=== PATIENT | female | born 1940 | race Caucasian/White ===

== ENCOUNTER → 2016-07-01 | Outpatient (CLI) | payer MEDICARE | LOC: GMAL 10:09 | PROVIDERS: ATTEND Family Medicine | DX: R53.82 Chronic fatigue, unspecified (principal) ==

== ENCOUNTER → 2017-01-02 | Outpatient (CLI) | payer MEDICARE | END | disposition home or self-care (01) | LOC: GMAL 10:56 | PROVIDERS: ATTEND Family Medicine | DX: D51.3 Other dietary vitamin B12 deficiency anemia (principal); E55.9 Vitamin D deficiency, unspecified ==

== ENCOUNTER → 2017-01-07 | Outpatient (CLI) | payer MEDICARE | END | disposition home or self-care (01) | LOC: GMAL 16:36 | PROVIDERS: ATTEND Family Medicine | DX: D53.9 Nutritional anemia, unspecified (principal) ==

== ENCOUNTER → 2017-01-10 | Outpatient (CLI) | payer MEDICARE ==
--- NOTE | 2017-01-11 13:38 | MRI ---
EXAM DESCRIPTION: Lumbar Spine w/o Contrast CLINICAL HISTORY: 76 years, Female, LOW BACK PAIN right hip and leg pain COMPARISON: None available FINDINGS Sagittal and axial sequences. Bone marrow signal unremarkable. Conus terminates at L1. Several benign-appearing renal cysts on the right. Largest about 1 cm. Straightening compatible muscular spasm. L1-2 unremarkable. At L2-3, left lateral protrusion, about 2 mm, AP width about 1 cm. Protruding disc flattening left-sided thecal sac and narrows left exit foramen. Mild narrowing and bulge L3-4 mild bilateral foraminal narrowing. L4-5 mild diffuse bulging disc with facet degenerative change. No significant stenosis. At L5-S1 slight narrowing with minimal bulge IMPRESSION: 1. Left lateral protrusion L2-3 slightly flattening the thecal sac and narrowing the left exit foramen 2. Mild bulging disc L3-4 and L4-5 slightly narrowing the exit foramen bilaterally at both these levels Electronically signed by: Silverio Tang MD 01/11/2017 1:37 PM CDT
== END | disposition home or self-care (01) ==
LOC: MRI 10:52
PROVIDERS: ATTEND Family Medicine
DX: M51.26 Other intervertebral disc displacement, lumbar region (principal)

== ENCOUNTER → 2017-07-24 | Outpatient (CLI) | payer MEDICARE | LOC: GMAL 14:05 | PROVIDERS: ATTEND Family Medicine | DX: D50.8 Other iron deficiency anemias (principal) ==

== ENCOUNTER → 2017-09-01 | Outpatient (CLI) | payer MEDICARE | LOC: GMAJ 12:03 | PROVIDERS: ATTEND Family Medicine | DX: D50.8 Other iron deficiency anemias (principal) ==

== ENCOUNTER 2018-04-15 21:56 | Inpatient (IN) | payer MEDICARE ==
--- NOTE | 2018-04-15 22:13 | ED.PDOC ---
History of Present Illness - General Chief Complaint: General Stated Complaint: vomiting, cough, headache Time Seen by Provider: 04/15/18 22:13 Source: patient Exam Limitations: no limitations - History of Present Illness Initial Comments: Lesley Wang 77 y/o female brought by family with slightly productive cough for the last 3 days stating getting worse then developing fever today.No flu immunization this year.Had also episode of vomiting with the cough as well as achy throat. Timing/Duration: getting worse, other - 2 days Improving Factors: nothing Worsening Factors: other - see hpi Associated Symptoms: cough, nausea/vomiting Allergies/Adverse Reactions: Allergies Codeine Allergy (Verified 04/15/18 22:12) Home Medications: Ambulatory Orders Benazepril & Hydrochlorothiazi [Benazepril HCl/Hydrochlor 20-25 mg] 1 tablet PO DAILY 04/15/18 Fluoxetine HCl 40 mg PO DAILY 04/15/18 Metformin HCl 500 mg PO BID 04/15/18 Pantoprazole Sodium 40 mg PO DAILY 04/15/18 Pravastatin Sodium 40 mg PO DAILY 04/15/18 Review of Systems - Review of Systems Constitutional: States: see HPI, fever EENTM: States: throat pain Respiratory: States: see HPI, cough Cardiology: States: no symptoms reported Gastrointestinal/Abdominal: States: no symptoms reported Genitourinary: States: no symptoms reported Musculoskeletal: States: no symptoms reported Skin: States: no symptoms reported Neurological: States: no symptoms reported Endocrine: States: no symptoms reported All other Systems: Reviewed and Negative, No Change from Baseline Past Medical History (General) - Patient Medical History Hx Hypertension: Yes Hx Diabetes: Yes Hx Cancer: No Hx Hepatitis C: No Surgical History: cholecystectomy, Hysterectomy, other - hysterectomy,cataract,C TS - Vaccination History Hx Tetanus, Diphtheria Vaccination: No Hx Influenza Vaccination: No Hx Pneumococcal Vaccination: No - Social History Hx Tobacco Use: No Hx Alcohol Use: No Family Medical History - Family History Mother Family History: No Known Physical Exam - Physical Exam General Appearance: Alert, Comfortable, No apparent distress Eye Exam: bilateral normal Ears, Nose, Throat: hearing grossly normal, normal ENT inspection Neck: non-tender, supple, normal inspection Respiratory: chest non-tender, no respiratory distress, decreased breath sounds - right side lung upper part Cardiovascular/Chest: normal peripheral pulses, regular rate, rhythm, no murmur Peripheral Pulses: radial,right: 2+, radial,left: 2+ Gastrointestinal/Abdominal: non tender, soft Back Exam: no CVA tenderness, no vertebral tenderness Extremity: no pedal edema, no calf tenderness Neurologic: alert, oriented x 3 Skin Exam: normal color, warm/dry Progress - Progress Progress: 04/15/18 22:45 Vital Signs - 8 hr 04/15/18 22:08 Temperature 101.3 F H Pulse Rate [ 104 H left] Respiratory 18 Rate Blood Pressure 166/88 [left] O2 Sat by Pulse 93 L Oximetry 04/15/18 23:57 Discus test result with patient and family need hospitalization agreed with plan - Results/Orders Results/Orders: 04/15/18 22:14 IV Care:Saline Lock per Protoc QSHIFT URINALYSIS Stat 04/15/18 22:50 STREP A SCREEN CULTURE Stat Laboratory Results - last 24 hr 04/15/18 04/15/18 04/15/18 22:40 22:40 22:50 WBC 8.6 RBC 3.90 L Hgb 11.9 L Hct 35.4 L MCV 90.7 MCH 30.5 MCHC 33.6 RDW 14.2 Plt Count 273 MPV 7.6 Absolute Neuts (auto) 7.20 H Absolute Lymphs (auto) 0.90 L Absolute Monos (auto) 0.50 Absolute Eos (auto) 0.00 Absolute Basos (auto) 0.10 Neutrophils % 83.9 H Lymphocytes % 10.1 L Monocytes % 5.3 Eosinophils % 0.1 L Basophils % 0.6 PT 10.4 INR 1.04 PTT (SP) 25.6 Sodium 130 L Potassium 3.2 L Chloride 96 L Carbon Dioxide 23 Anion Gap 14.2 BUN 22 H Creatinine 1.33 H BUN/Creatinine Ratio 16.5 Random Glucose 177 H Serum Osmolality 268.5 L Lactic Acid 1.2 Calcium 8.8 Magnesium 1.3 L Total Bilirubin 0.6 Direct Bilirubin 0.2 Indirect Bilirubin 0.4 AST 24 ALT 20 Alkaline Phosphatase 49 Creatine Kinase 177 H CK-MB (CK-2) 0.8 CK-MB (CK-2) % Not Reportable Troponin I < 0.02 Serum Total Protein 7.4 Albumin 4.3 Group A Strep Rapid Negative - EKG/XRAY/CT XRAY: chest - opacity rl base Departure - Departure Clinical Impression: Influenza A Pneumonia Qualifiers: Pneumonia type: due to unspecified organism Laterality: right Lung location: lower lobe of lung Qualified Code(s): J18.1 - Lobar pneumonia, unspecified organism Time of Disposition: 23:59 - D/W Jovana Ortiz -ANP/Hospitalist Disposition: Admit Patient Condition: Fair Departure Forms: ED Discharge - Pt. Copy, Patient Portal Self Enrollment Referrals: Andre Carolina III, MD [Primary Care Provider] - 1-2 Weeks Home Medications: Ambulatory Orders Benazepril & Hydrochlorothiazi [Benazepril HCl/Hydrochlor 20-25 mg] 1 tablet PO DAILY 04/15/18 Fluoxetine HCl 40 mg PO DAILY 04/15/18 Metformin HCl 500 mg PO BID 04/15/18 Pantoprazole Sodium 40 mg PO DAILY 04/15/18 Pravastatin Sodium 40 mg PO DAILY 04/15/18 Decision To Admit - Decistion To Admit Decision to Admit Reason: Admit from ER Decision to Admit Date: 04/15/18 Decision to Admit Time: 23:56
[2018-04-15] MEDS ORDERED: ACETAMINOPHEN 500 MG TAB PO ONE (22:14)
[2018-04-15] MEDS ORDERED: SODIUM CHLORIDE 0.9% 500ML 500 ML IVS ONE (22:14)
--- NOTE | 2018-04-15 22:35 | RAD ---
EXAM DESCRIPTION: Chest,1 View CLINICAL HISTORY: cough COMPARISON: Chest radiograph dated September 04, 2008 TECHNIQUE: Single upright portable AP view of the chest FINDINGS: Calcific atherosclerosis of the aortic arch. Cardiomediastinal silhouette and pulmonary vascularity are within normal limits. Opacity in the medial right lung base may represent atelectasis versus infiltrate. Left lung shows no confluent infiltrate. No pleural effusion. No pneumothorax. No acute osseous abnormality. IMPRESSION: Opacity in the medial right lung base may represent atelectasis versus infiltrate. Electronically signed by: Andre Todd MD 04/15/2018 10:34 PM [facility]
[2018-04-15] MEDS ORDERED: cefTRIAXone SODIUM 1 GM in SODIUM CHL 0.9% 50ML MIN-BAG+ 50 ML IVPB ONE (23:56)
[2018-04-15] MEDS ORDERED: AZITHROMYCIN IV 500 MG in SODIUM CHLORIDE 0.9% 250ML 250 ML IVPB ONE (23:56)
[2018-04-15] MEDS ORDERED: OSELTAMIVIR 75 MG CAP PO ONE (23:56)
[2018-04-15] MEDS ORDERED: LEVALBUTEROL NEBS 1.25 MG/3 ML VIAL NEB ONE (23:58)
[2018-04-16] MEDS ORDERED: MAGNESIUM SULFATE PREMIX 2GM 2 GM in PREMIX BAG 1 BAG IVPB ONE (00:03)
[2018-04-16] MEDS ORDERED: cefTRIAXone SODIUM 1 GM VIAL ONE ×2 (00:04→20:09)
[2018-04-16] MEDS ORDERED: SODIUM CHL 0.9% 50ML MIN-BAG+ 50 ML IVPB ONE ×2 (00:05→20:08)
--- NOTE | 2018-04-16 00:32 | HP ---
SUPERVISING PHYSICIAN: Isa Zee MD CHIEF COMPLAINT: HISTORY OF PRESENT ILLNESS: This is a 77-year-old female patient who has had upper respiratory symptoms that began on Friday. She sounds like she was somewhat better yesterday until 5 PM when she started having coughing and extreme weakness. She actually could not even walk. She called her daughter who lives at [facility] to come help her. When her daughter saw her, she said she was bringing her to the hospital. She has a mild sore throat, some shortness of breath and nausea and vomiting that mostly came with coughing. She came to the Emergency Room. Her vital signs showed a temperature of 101.3 with heart rate 104, blood pressure 166/88, respiratory rate 18, O2 saturation 93% on room air. Labs were drawn. Her group A strep was negative. Her influenza test per PCR was positive for flu A, negative for flu B. Her CBC showed WBC 8.6, hemoglobin 11.9, hematocrit 35.4. She did have a left shift on her differential. Her coags were within normal limits. Chemistry showed low potassium of 3.2, low sodium 130, chloride low at 96, carbon dioxide 23, anion gap 14, BUN 22, creatinine elevated at 1.33. Glucose 177, serum osmolality 268.5, magnesium 1.3. Cardiac enzymes were negative except for her creatinine kinase was 177. Her liver enzymes were within normal limits. Lactic acid 1.2. She was given some magnesium in the Emergency Room as well as several breathing treatments. She was also administered Tamiflu, Rocephin and azithromycin. Some oral potassium was given. Her chest x-ray showed an opacity in the medial right lung base that may represent atelectasis or infiltrate. I was called for admission. PAST MEDICAL HISTORY: 1. Diabetes mellitus, type 2. 2. Iron deficiency anemia. 3. Lumbar radiculopathy. 4. Peripheral neuropathy. 5. Chronic obstructive pulmonary disease, mostly due to secondhand smoke. 6. Colonic polyps. 7. Gastroesophageal reflux disease. 8. Hypertension. 9. Pulmonary nodule that was followed some time back around 2005. PAST SURGICAL HISTORY: 1. Appendectomy. 2. Cholecystectomy. 3. Hysterectomy. 4. Hemorrhoidectomy. 5. Right breast lumpectomy. 6. Right shoulder rotator cuff repair. ALLERGIES: CODEINE. FAMILY HISTORY: Positive for diabetes, cancer, emphysema. SOCIAL HISTORY: She is retired. She is . She has five children. She has never smoked, but was exposed to secondhand smoke. She denies any ETOH or illicit drug use. REVIEW OF SYSTEMS: GENERAL: Positive for fatigue, subjective fever. Negative for weight changes. HEENT: Positive for sore throat. Negative for sinus symptoms, ear pain, vision changes. RESPIRATORY: Positive for shortness of breath and coughing. Negative for wheezing. CARDIAC: Negative for chest pain, palpitations or tachycardia. GASTROINTESTINAL: Positive for nausea and vomiting. Negative for diarrhea, constipation or abdominal pain. GENITOURINARY: Negative for hematuria, dysuria or polyuria. MUSCULOSKELETAL: Positive for muscle aches and pains. Negative for arthralgias. NEUROLOGIC: Positive for dizziness. Negative for headache or seizures. PHYSICAL EXAMINATION: VITAL SIGNS: Temperature 99.1. Heart rate 100. Blood pressure 116/64. Respiratory rate 22. O2 saturation 96%. GENERAL: This is a thin, 77-year-old female lying in her hospital bed. She looks moderately ill. HEENT: Normocephalic, atraumatic. Pupils are equal and reactive. Oropharynx is clear. Posterior pharynx looks erythematous with some post nasal drip. NECK: Supple without mass. RESPIRATORY: Diminished at the bases with a few scattered rhonchi. There is no wheezing noted. CHEST: There is equal rise and fall of the chest with inspiration and expiration. CARDIOVASCULAR: Regular rate and rhythm. GASTROINTESTINAL: Abdomen is soft, nondistended, nontender. Bowel sounds are positive. EXTREMITIES: No cyanosis, clubbing or edema. NEUROLOGIC: Awake, alert and oriented times three. Cranial nerves II-XII are grossly intact. LABORATORY: Subsequent labs from the Emergency Room show electrolytes basically within normal limits with the exception of her chloride is still low at 98. Creatinine is slightly worsened from earlier to 1.45. Serum osmolality 273.8. CBC is basically within normal limits with the exception of a left shift on her differential. Urinalysis show 15 urine ketones and a trace of intact urine blood. Blood cultures are still pending. All other labs and films have been reviewed via the EMR. IMPRESSION: 1. Sepsis secondary to right lower lobe pneumonia, most likely community acquired with admitting temperature of 101.3, heart rate 104. She had a normal WBC, but she did have a left shift on her differential. This is also being complicated by influenza A. 2. Influenza A by PCR and admitting temperature of 101.4. 3. Electrolyte imbalance, specifically hyponatremia, hypokalemia, hypochloremia and hypomagnesemia. She received supplementation. 4. Renal insufficiency with creatinine 1.33, slightly worsened to 1.45. I do not know what her baseline creatinine is as there is no creatinine in the EMR. 5. Gastroesophageal reflux disease. 6. Diabetes mellitus, type 2. 7. Chronic obstructive pulmonary disease. 8. Hypertension. 9. Peripheral neuropathy. 10. Chronic low back pain. PLAN: We will admit the patient to the hospital. We will continue her on the pneumonia guidelines including continuing her Rocephin and her azithromycin. She will have aggressive pulmonary hygiene. I have also ordered a sputum. She will be started on Tamiflu for the flu A. I will recheck her labs in the morning as she has had a significant electrolyte imbalance. She will also receive some fluids. Hopefully we can normalize her renal function and we will call Dr. Carolina' office to confirm her baseline creatinine. I have started a proton pump inhibitor for ulcer prophylaxis and Lovenox for deep venous thrombosis prophylaxis. She will have blood sugars checked a.c. and h.s. with Humalog insulin coverage. All home medications have been restarted. I have also given her some tramadol for pain as she has fairly significant rib pain due to the extreme coughing. I have also given her some guaifenesin scheduled dosing. We will continue to monitor the patient closely and follow as needed. #[id number] [facility]
[2018-04-16] MEDS ORDERED: MAGNESIUM SULFATE PREMIX 2GM 50 ML IVPB ONE (00:33)
[2018-04-16] MEDS ORDERED: ONDANSETRON INJ 4 MG/2 ML VIAL IV PRN (01:33)
[2018-04-16] MEDS ORDERED: LEVALBUTEROL NEBS 1.25 MG/3 ML VIAL INH PRN (01:33)
[2018-04-16] MEDS ORDERED: SODIUM CHLORIDE 0.9% (FLUSH) 10 ML SYG IV PRN (01:33)
[2018-04-16] MEDS ORDERED: SODIUM CHLORIDE 0.9% 250ML 250 ML ONE ×2 (01:43→20:08)
[2018-04-16] MEDS ORDERED: KCL 20 MEQ/NS 1,000 ML IVS ONE (01:43)
[2018-04-16] MEDS ORDERED: AZITHROMYCIN IV 500 MG VIAL IVPB ONE ×2 (01:44→20:09)
[2018-04-16] MEDS: IV SET AND CAP CHANGE INJ INJ SCH (02:26)
[2018-04-16] MEDS: PANTOPRAZOLE SODIUM IV 40 MG VIAL IV SCH (06:09)
[2018-04-16] MEDS: ACETAMINOPHEN 325 MG TAB PO PRN ×2 (06:41→19:49)
[2018-04-16] MEDS: LEVALBUTEROL NEBS 1.25 MG/3 ML VIAL INH SCH ×4 (09:10→20:20)
[2018-04-16] MEDS: ENOXAPARIN SODIUM 40 MG/0.4 ML SYG SUBCU SCH (09:54)
[2018-04-16] MEDS: metFORMIN HCL 500 MG TAB PO SCH ×2 (09:55→21:11)
[2018-04-16] MEDS: PRAVASTATIN SODIUM 20 MG TAB PO SCH (09:56)
[2018-04-16] MEDS: LISINOPRIL 10 MG TAB PO SCH (09:56)
[2018-04-16] MEDS: FLUoxetine HCL 20 MG CAP PO SCH (09:57)
[2018-04-16] MEDS: OSELTAMIVIR 75 MG CAP PO SCH ×2 (09:58→21:11)
[2018-04-16] MEDS: hydroCHLOROthiazide 25 MG TAB PO SCH (10:04)
[2018-04-16] MEDS: SODIUM CHLORIDE 0.9% (FLUSH) 10 ML SYG IV SCH ×2 (10:05→21:11)
[2018-04-16] MEDS ORDERED: DEXTROSE 50% 25 GM/50 ML SYG IV PRN (10:38)
[2018-04-16] MEDS ORDERED: GLUCAGON INJ 1 MG VIAL SUBCU PRN (10:38)
[2018-04-16] MEDS ORDERED: traMADol HCL 50 MG TAB PO PRN (11:21)
[2018-04-16] MEDS: INSULIN LISPRO 100 UNITS/ML PEN SUBCU SCH ×3 (12:33→21:13)
[2018-04-16] MEDS: guaiFENesin ER TAB 600 MG TAB PO SCH ×2 (12:34→21:11)
[2018-04-16] MEDS: TEMAZEPAM 15 MG CAP PO PRN (21:12)
[2018-04-16] MEDS: AZITHROMYCIN IV 500 MG in SODIUM CHLORIDE 0.9% 250ML 250 ML IVPB SCH (21:12)
[2018-04-16] MEDS: cefTRIAXone SODIUM 1 GM in SODIUM CHL 0.9% 50ML MIN-BAG+ 50 ML IVPB SCH (22:21)
[2018-04-17] MEDS: PANTOPRAZOLE SODIUM IV 40 MG VIAL IV SCH (06:14)
--- NOTE | 2018-04-17 07:19 | RAD ---
CHEST 04/17/2018 CLINICAL HISTORY: Follow-up pneumonia COMPARISON: Chest 04/15/2018, 02/19/2007. TECHNIQUE: Frontal and lateral Chest. FINDINGS: Normal cardiac size. Mild aortic atherosclerosis. Stable opacity along the right cardiophrenic angle likely represents prominent pericardial fat. This is similar to a more remote examination of 2006. The pleural spaces are clear. There is widening of the right and left hemidiaphragms and hyperinflation. There is biapical pleural thickening. Unremarkable bony structures. Normal soft tissues. IMPRESSION: 1. No evidence of pneumonia. Chronic right cardiophrenic angle opacity most suggestive of chronic pericardial fat pad. 2. COPD. Electronically signed by: Alisha Nair DO 04/17/2018 7:18 AM [employer]
[2018-04-17] MEDS: INSULIN LISPRO 100 UNITS/ML PEN SUBCU SCH ×4 (07:21→21:13)
[2018-04-17] MEDS: ENOXAPARIN SODIUM 40 MG/0.4 ML SYG SUBCU SCH (08:02)
[2018-04-17] MEDS: PRAVASTATIN SODIUM 20 MG TAB PO SCH (08:03)
[2018-04-17] MEDS: SODIUM CHLORIDE 0.9% (FLUSH) 10 ML SYG IV SCH ×2 (08:03→21:12)
[2018-04-17] MEDS: FLUoxetine HCL 20 MG CAP PO SCH (08:03)
[2018-04-17] MEDS: metFORMIN HCL 500 MG TAB PO SCH ×2 (08:04→21:12)
[2018-04-17] MEDS: guaiFENesin ER TAB 600 MG TAB PO SCH ×2 (08:04→21:12)
[2018-04-17] MEDS: OSELTAMIVIR 75 MG CAP PO SCH ×2 (08:04→21:12)
[2018-04-17] MEDS: LISINOPRIL 10 MG TAB PO SCH (08:04)
[2018-04-17] MEDS: hydroCHLOROthiazide 25 MG TAB PO SCH (08:04)
[2018-04-17] MEDS: LEVALBUTEROL NEBS 1.25 MG/3 ML VIAL INH SCH ×4 (08:24→19:39)
[2018-04-17] MEDS ORDERED: MAGNESIUM SULFATE PREMIX 2GM 2 GM in PREMIX BAG 1 BAG IVPB ONE (13:11)
[2018-04-17] MEDS ORDERED: POTASSIUM CHLORIDE 20 MEQ TAB PO ONE (13:11)
[2018-04-17] MEDS ORDERED: MAGNESIUM SULFATE PREMIX 2GM 50 ML IVPB ONE (13:33)
[2018-04-17] MEDS ORDERED: KCL 20MEQ/WATER FOR INJ 100ML 20 MEQ in PREMIX BAG 1 BAG IVPB ONE (14:00)
[2018-04-17] MEDS ORDERED: KCL 20MEQ/WATER FOR INJ 100ML 100 ML IVPB ONE (14:31)
--- NOTE | 2018-04-17 14:34 | PN ---
SUPERVISING PHYSICIAN: Isa Zee MD DATE: 04/17/18 SUBJECTIVE: The patient is lying in bed in her room. She feels much better than she did yesterday. She said she actually slept last night. She is finally coughing up some thick sputum. Otherwise, she denies chest pain, nausea, vomiting, constipation. OBJECTIVE: VITAL SIGNS: Temperature 98.9. Heart rate 78. Blood pressure 120/69. Respiratory rate 20. O2 saturation 97% on room air. RESPIRATORY: She is somewhat diminished at the bases, but otherwise clear to auscultation. CARDIAC: Regular rate and rhythm. GASTROINTESTINAL: Abdomen is soft, nondistended, nontender. Bowel sounds are positive. EXTREMITIES: No cyanosis, clubbing or edema. NEUROLOGIC: Awake, alert and oriented times three. LABORATORY: Sodium 138, potassium 2.8, chloride 102, carbon dioxide 26, calcium 8.3, magnesium 1.7, BUN 14, creatinine improved to 1.19. WBCs 7.7, hemoglobin 12, hematocrit 36.2. She does have a left shift on differential. Sputum culture is pending. Preliminary blood cultures show no growth after 24 hours. Throat culture is pending. Chest x-ray shows 1) No evidence of pneumonia. Chronic right cardiophrenic angle opacity, most suggestive of chronic pericardial fat pad. 2) Chronic obstructive pulmonary disease. All other labs and films have been reviewed via the EMR. ASSESSMENT: 1. Sepsis secondary to right lower lobe pneumonia, most likely community acquired with admitting temperature of 101.3, heart rate 104. She had a normal WBC, but she did have a left shift on her differential. This is also being complicated by influenza A. 2. Influenza A by PCR and admitting temperature of 101.4. 3. Electrolyte imbalance, specifically hyponatremia, hypokalemia, hypochloremia and hypomagnesemia. She received supplementation. 4. Renal insufficiency with creatinine on admission of 1.33, worsened yesterday to 1.45. Today, her creatinine is 1.19. 5. Gastroesophageal reflux disease. 6. Diabetes mellitus, type 2. 7. Chronic obstructive pulmonary disease. 8. Hypertension. 9. Peripheral neuropathy. 10. Chronic low back pain. PLAN: We will continue present supportive care. I have given her 2 grams of magnesium replacement and I have also given her 40 mEq of p.o. I have ordered an additional 20 mEq of potassium after the magnesium is complete. Clinically, she is much improved from yesterday. We will correct her electrolytes and I will repeat her lab in the morning. I encouraged good pulmonary hygiene. We will continue to monitor the patient closely and follow as needed. Dr. Zee is the collaborating physician and available for consultation. #[id number] [facility]
[2018-04-17] MEDS ORDERED: SODIUM CHLORIDE 0.9% 250ML 250 ML ONE (20:39)
[2018-04-17] MEDS ORDERED: SODIUM CHL 0.9% 50ML MIN-BAG+ 50 ML IVPB ONE (20:40)
[2018-04-17] MEDS ORDERED: cefTRIAXone SODIUM 1 GM VIAL ONE (20:40)
[2018-04-17] MEDS ORDERED: AZITHROMYCIN IV 500 MG VIAL IVPB ONE (20:41)
[2018-04-17] MEDS: AZITHROMYCIN IV 500 MG in SODIUM CHLORIDE 0.9% 250ML 250 ML IVPB SCH (21:13)
[2018-04-17] MEDS: TEMAZEPAM 15 MG CAP PO PRN (21:13)
[2018-04-17] MEDS: cefTRIAXone SODIUM 1 GM in SODIUM CHL 0.9% 50ML MIN-BAG+ 50 ML IVPB SCH (22:36)
[2018-04-18] MEDS: PANTOPRAZOLE SODIUM IV 40 MG VIAL IV SCH (06:14)
[2018-04-18] MEDS: INSULIN LISPRO 100 UNITS/ML PEN SUBCU SCH ×4 (06:57→21:53)
[2018-04-18] MEDS: metFORMIN HCL 500 MG TAB PO SCH ×2 (08:01→20:42)
[2018-04-18] MEDS: PRAVASTATIN SODIUM 20 MG TAB PO SCH (08:01)
[2018-04-18] MEDS: LISINOPRIL 10 MG TAB PO SCH (08:01)
[2018-04-18] MEDS: hydroCHLOROthiazide 25 MG TAB PO SCH (08:01)
[2018-04-18] MEDS: guaiFENesin ER TAB 600 MG TAB PO SCH ×2 (08:02→20:42)
[2018-04-18] MEDS: ENOXAPARIN SODIUM 40 MG/0.4 ML SYG SUBCU SCH (08:02)
[2018-04-18] MEDS: OSELTAMIVIR 75 MG CAP PO SCH ×2 (08:02→20:42)
[2018-04-18] MEDS: SODIUM CHLORIDE 0.9% (FLUSH) 10 ML SYG IV SCH ×2 (08:02→20:42)
[2018-04-18] MEDS: FLUoxetine HCL 20 MG CAP PO SCH (08:02)
[2018-04-18] MEDS: LEVALBUTEROL NEBS 1.25 MG/3 ML VIAL INH SCH ×4 (08:09→20:03)
[2018-04-18] MEDS ORDERED: DEX 5% W/NACL 0.45% 1000ML 1,000 ML IVS ONE (11:59)
[2018-04-18] MEDS ORDERED: KETOROLAC TROMETHAMINE INJ 30 MG/ML VIAL IV ONE (12:00)
[2018-04-18] MEDS ORDERED: SODIUM CHL 0.9% 50ML MIN-BAG+ 50 ML IVPB ONE (19:22)
[2018-04-18] MEDS ORDERED: SODIUM CHLORIDE 0.9% 250ML 250 ML ONE (19:22)
[2018-04-18] MEDS ORDERED: cefTRIAXone SODIUM 1 GM VIAL ONE (19:22)
[2018-04-18] MEDS ORDERED: AZITHROMYCIN IV 500 MG VIAL IVPB ONE (19:23)
[2018-04-18] MEDS: AZITHROMYCIN IV 500 MG in SODIUM CHLORIDE 0.9% 250ML 250 ML IVPB SCH (20:42)
--- NOTE | 2018-04-18 21:33 | PN ---
DATE: 04/18/18 SUPERVISING PHYSICIAN: Timothy Zee M.D. SUBJECTIVE: The patient is sitting up in bed. She admits she does not feel as good today as she did yesterday. Her daughter is at the bedside. She complains of being very weak as well as some shortness of breath. We discussed her lab results and her plan of care. She also would like some chicken noodle soup with her meals as her appetite is poor. OBJECTIVE: VITAL SIGNS: Temperature 98.5, heart rate 80, blood pressure 170/67, respiratory rate 20, O2 sat is 97% on room air. RESPIRATORY: Essentially clear to auscultation bilaterally. CARDIAC: Regular rate and rhythm. GASTROINTESTINAL: Abdomen is soft, nondistended, non-tender. Bowel sounds are positive. EXTREMITIES: No cyanosis, clubbing or edema. NEUROLOGIC: She is awake, alert and oriented times three. LABORATORY: WBCs are 5.3 with hemoglobin 10.8, hematocrit 32.6. Differential is normal today. Blood sugars have run between 81 and 134. Electrolytes are basically within normal limits. All other labs and films have been reviewed via the EMR. ASSESSMENT: 1. Sepsis secondary to right lower lobe pneumonia, most likely community acquired with admitting temperature of 101.3, heart rate 104. She had a normal WBC, but she did have a left shift on her differential. This is also being complicated by influenza A. 2. Influenza A by PCR and admitting temperature of 101.4. 3. Electrolyte imbalance, specifically hyponatremia, hypokalemia, hypochloremia and hypomagnesemia. She received supplementation. 4. Renal insufficiency with creatinine on admission of 1.33. Today her creatinine is 1.4 5. Gastroesophageal reflux disease. 6. Diabetes mellitus, type 2. 7. Chronic obstructive pulmonary disease. 8. Hypertension. 9. Peripheral neuropathy. 10. Chronic low back pain. PLAN: We will continue present supportive care. I have ordered chicken noodle soup on her trays. I will also repeat lab and chest x-ray in the morning. I have also encouraged her to try some Tramadol as she has been hurting and she is quite afraid of narcotics. She was encouraged to try 1 Tramadol and see how it helped. I have also given her 1 liter of fluid as her intake has been poor. We will continue to monitor closely and follow as needed. [facility][id number] [facility]
[2018-04-18] MEDS: TEMAZEPAM 15 MG CAP PO PRN (21:54)
[2018-04-18] MEDS: cefTRIAXone SODIUM 1 GM in SODIUM CHL 0.9% 50ML MIN-BAG+ 50 ML IVPB SCH (22:33)
[2018-04-19] MEDS: PANTOPRAZOLE SODIUM IV 40 MG VIAL IV SCH (06:33)
[2018-04-19] MEDS: IV SET AND CAP CHANGE INJ INJ SCH (06:35)
--- NOTE | 2018-04-19 06:35 | RAD ---
EXAM DESCRIPTION: Chest,2 Views CLINICAL HISTORY:77 years Female, pna Comparison: April 17, 2018 FINDINGS: No focal lung consolidation. No pleural effusion. No pneumothorax. Cardiac and mediastinal silhouette is unremarkable. No acute osseous abnormality. Soft tissues are unremarkable. IMPRESSION: No acute findings. No focal lung consolidation. Electronically signed by: Flaquito Evans MD 04/19/2018 6:34 AM [employer]
[2018-04-19] MEDS: INSULIN LISPRO 100 UNITS/ML PEN SUBCU SCH ×4 (07:22→21:12)
[2018-04-19] MEDS: metFORMIN HCL 500 MG TAB PO SCH ×2 (08:24→21:12)
[2018-04-19] MEDS: LISINOPRIL 10 MG TAB PO SCH (08:24)
[2018-04-19] MEDS: SODIUM CHLORIDE 0.9% (FLUSH) 10 ML SYG IV SCH ×2 (08:24→21:13)
[2018-04-19] MEDS: FLUoxetine HCL 20 MG CAP PO SCH (08:24)
[2018-04-19] MEDS: hydroCHLOROthiazide 25 MG TAB PO SCH (08:24)
[2018-04-19] MEDS: ENOXAPARIN SODIUM 40 MG/0.4 ML SYG SUBCU SCH (08:24)
[2018-04-19] MEDS: PRAVASTATIN SODIUM 20 MG TAB PO SCH (08:25)
[2018-04-19] MEDS: OSELTAMIVIR 75 MG CAP PO SCH ×2 (08:25→21:12)
[2018-04-19] MEDS: guaiFENesin ER TAB 600 MG TAB PO SCH ×2 (08:25→21:12)
[2018-04-19] MEDS: LEVALBUTEROL NEBS 1.25 MG/3 ML VIAL INH SCH ×4 (08:46→21:00)
[2018-04-19] MEDS ORDERED: MAGNESIUM SULFATE PREMIX 2GM 2 GM in PREMIX BAG 1 BAG IVPB ONE (09:10)
[2018-04-19] MEDS ORDERED: POTASSIUM CHLORIDE 20 MEQ TAB PO ONE (09:10)
[2018-04-19] MEDS ORDERED: MAGNESIUM SULFATE PREMIX 2GM 50 ML IVPB ONE (10:23)
--- NOTE | 2018-04-19 16:31 | PN ---
DATE: 04/19/18 SUPERVISING PHYSICIAN: Timothy Zee M.D. SUBJECTIVE: The patient is lying in her hospital bed. She is sleeping. She awakens easily. She feels much better today than she did yesterday. She feels like she is slowly regaining her strength. She denies any shortness of breath, nausea, vomiting, diarrhea or chest pain. OBJECTIVE: VITAL SIGNS: Temperature 98, heart rate 90, blood pressure 115/66, respiratory rate 18, O2 sat 98% on room air. RESPIRATORY: Essentially clear to auscultation bilaterally. She is somewhat diminished at the bases and there is an occasional scattered rhonchi. CARDIAC: Regular rate and rhythm. GASTROINTESTINAL: Abdomen is soft, nondistended, non-tender. Bowel sounds are positive. NEUROLOGIC: She is awake, alert and oriented times three. LABORATORY: WBCs are 4.7 with a stable hemoglobin and hematocrit of 10.8 and 32.6. Potassium is slightly low at 3.2 and magnesium 1.5. She did receive magnesium and potassium supplementation yesterday. Liver enzymes are within normal limits. Preliminary blood cultures show no growth after 3 days. Chest x-ray shows no acute findings. No focal lung consolidations. All other labs and films have been reviewed via the EMR. ASSESSMENT: 1. Sepsis secondary to right lower lobe pneumonia, most likely community acquired with admitting temperature of 101.3, heart rate 104. She had a normal WBC, but she did have a left shift on her differential. This is also being complicated by influenza A. 2. Influenza A by PCR and admitting temperature of 101.4. 3. Electrolyte imbalance, specifically hyponatremia, hypokalemia, hypochloremia and hypomagnesemia. She received supplementation. 4. Renal insufficiency with creatinine on admission of 1.33. Today her creatinine is 1.21. 5. Gastroesophageal reflux disease. 6. Diabetes mellitus, type 2. 7. Chronic obstructive pulmonary disease. 8. Hypertension. 9. Peripheral neuropathy. 10. Chronic low back pain. PLAN: We will continue present supportive care. I have ordered physical therapy for tomorrow. We also need to find out if she can come out of isolation. I will give her some magnesium as well as some supplemental potassium. I will check her labs again this afternoon and then again in the morning. Hopefully she can be discharged tomorrow with close followup with her primary care physician, Dr. Carolina. Will continue to monitor closely and follows a needed. [facility][id number] [facility]
[2018-04-19] MEDS ORDERED: cefTRIAXone SODIUM 1 GM VIAL ONE (19:17)
[2018-04-19] MEDS ORDERED: SODIUM CHLORIDE 0.9% 250ML 250 ML ONE (19:17)
[2018-04-19] MEDS ORDERED: SODIUM CHL 0.9% 50ML MIN-BAG+ 50 ML IVPB ONE (19:17)
[2018-04-19] MEDS ORDERED: AZITHROMYCIN IV 500 MG VIAL IVPB ONE (19:18)
[2018-04-19] MEDS: AZITHROMYCIN IV 500 MG in SODIUM CHLORIDE 0.9% 250ML 250 ML IVPB SCH (20:00)
[2018-04-19] MEDS: TEMAZEPAM 15 MG CAP PO PRN (21:12)
[2018-04-19] MEDS: cefTRIAXone SODIUM 1 GM in SODIUM CHL 0.9% 50ML MIN-BAG+ 50 ML IVPB SCH (21:54)
[2018-04-20] MEDS: PANTOPRAZOLE SODIUM IV 40 MG VIAL IV SCH (06:46)
[2018-04-20] MEDS: INSULIN LISPRO 100 UNITS/ML PEN SUBCU SCH ×4 (07:10→21:27)
[2018-04-20] MEDS: ENOXAPARIN SODIUM 40 MG/0.4 ML SYG SUBCU SCH (08:10)
[2018-04-20] MEDS: PRAVASTATIN SODIUM 20 MG TAB PO SCH (08:11)
[2018-04-20] MEDS: guaiFENesin ER TAB 600 MG TAB PO SCH ×2 (08:11→20:30)
[2018-04-20] MEDS: metFORMIN HCL 500 MG TAB PO SCH ×2 (08:11→20:30)
[2018-04-20] MEDS: LISINOPRIL 10 MG TAB PO SCH (08:11)
[2018-04-20] MEDS: FLUoxetine HCL 20 MG CAP PO SCH (08:11)
[2018-04-20] MEDS: OSELTAMIVIR 75 MG CAP PO SCH (08:11)
[2018-04-20] MEDS: hydroCHLOROthiazide 25 MG TAB PO SCH (08:12)
[2018-04-20] MEDS: SODIUM CHLORIDE 0.9% (FLUSH) 10 ML SYG IV SCH ×2 (08:12→20:30)
[2018-04-20] MEDS: LEVALBUTEROL NEBS 1.25 MG/3 ML VIAL INH SCH ×5 (09:00→20:03)
--- NOTE | 2018-04-20 13:29 | PN ---
SUPERVISING PHYSICIAN: Mario Leong MD DATE: 04/20/18 SUBJECTIVE: The patient states she feels better today, but a little bit scared to go home. She does not really want to have to come back up here. She states she has walked up and down the [place] and actually today has not been short of breath. She is having a productive cough and this is with clear sputum at this time. OBJECTIVE: VITAL SIGNS: Blood pressure 124/65. Heart rate 84. Respiratory rate 16. Temperature 98.4. Oxygen saturation 97%. GENERAL: Ms. Wang is a 77-year-old female in no active distress currently. HEENT: Normocephalic, atraumatic. Pupils are equal and reactive. No nasal drainage. Throat with moist mucosa. NECK: Supple with midline trachea. No jugular venous distention. CHEST: Symmetrical with equal rise and fall of the chest with inspiration and expiration. Lung sounds are a little bit diminished, but otherwise clear to auscultation bilaterally. CARDIOVASCULAR: Regular rate and rhythm. Normal S1, S2. ABDOMEN: Soft. Positive bowel sounds. GENITOURINARY: Deferred. EXTREMITIES: Lower extremities with no edema. ASSESSMENT: 1. Sepsis secondary to right lower lobe pneumonia. 2. Influenza type A. 3. Electrolyte imbalance, improved. 4. Renal insufficiency. 5. Gastroesophageal reflux disease. 6. Diabetes mellitus, type 2. 7. Chronic obstructive pulmonary disease. 8. Hypertension. 9. Peripheral neuropathy. 10. Chronic low back pain. PLAN: Today is her last day of Tamiflu, so we will discontinue after today's dosage. It is discussed with her that she is quite improved and at this time I feel like there is nothing to necessarily keep her in the inpatient setting passed today. She agrees that we can likely work on discharge tomorrow. I will continue her regimen of antibiotics as well. #[id number] [facility]
[2018-04-20] MEDS ORDERED: SODIUM CHLORIDE 0.9% 250ML 250 ML ONE (19:12)
[2018-04-20] MEDS ORDERED: SODIUM CHL 0.9% 50ML MIN-BAG+ 50 ML IVPB ONE (19:13)
[2018-04-20] MEDS ORDERED: cefTRIAXone SODIUM 1 GM VIAL ONE (19:14)
[2018-04-20] MEDS ORDERED: AZITHROMYCIN IV 500 MG VIAL IVPB ONE (19:15)
[2018-04-20] MEDS: AZITHROMYCIN IV 500 MG in SODIUM CHLORIDE 0.9% 250ML 250 ML IVPB SCH (20:27)
[2018-04-20] MEDS: TEMAZEPAM 15 MG CAP PO PRN (20:40)
[2018-04-20] MEDS: cefTRIAXone SODIUM 1 GM in SODIUM CHL 0.9% 50ML MIN-BAG+ 50 ML IVPB SCH (22:36)
[2018-04-21] MEDS ORDERED: PANTOPRAZOLE SODIUM TAB 40 MG PO SCH (06:30)
[2018-04-21] MEDS: INSULIN LISPRO 100 UNITS/ML PEN SUBCU SCH (07:00)
[2018-04-21] MEDS: LEVALBUTEROL NEBS 1.25 MG/3 ML VIAL INH SCH (08:35)
[2018-04-21] MEDS: FLUoxetine HCL 20 MG CAP PO SCH (09:46)
[2018-04-21] MEDS: metFORMIN HCL 500 MG TAB PO SCH (09:46)
[2018-04-21] MEDS: hydroCHLOROthiazide 25 MG TAB PO SCH (09:46)
[2018-04-21] MEDS: SODIUM CHLORIDE 0.9% (FLUSH) 10 ML SYG IV SCH (09:47)
[2018-04-21] MEDS: guaiFENesin ER TAB 600 MG TAB PO SCH (09:47)
[2018-04-21] MEDS: ENOXAPARIN SODIUM 40 MG/0.4 ML SYG SUBCU SCH (09:47)
[2018-04-21] MEDS: PRAVASTATIN SODIUM 20 MG TAB PO SCH (09:47)
[2018-04-21] MEDS: LISINOPRIL 10 MG TAB PO SCH (09:47)
--- NOTE | 2018-04-21 10:01 | DS ---
SUPERVISING PHYSICIAN: Mario Leong MD ADMISSION DIAGNOSIS: 1. Sepsis secondary to right lower lobe pneumonia. 2. Influenza A. 3. Electrolyte imbalance. 4. Renal insufficiency. 5. Gastroesophageal reflux disease. 6. Diabetes mellitus, type 2. 7. Chronic obstructive pulmonary disease. 8. Hypertension. 9. Peripheral neuropathy. 10. Chronic low back pain. DISCHARGE DIAGNOSIS: 1. Sepsis secondary to right lower lobe pneumonia. 2. Influenza A. 3. Electrolyte imbalance. 4. Renal insufficiency. 5. Gastroesophageal reflux disease. 6. Diabetes mellitus, type 2. 7. Chronic obstructive pulmonary disease. 8. Hypertension. 9. Peripheral neuropathy. 10. Chronic low back pain. HOSPITAL COURSE: This is a 77-year-old female patient who has had upper respiratory symptoms that began on 04/13/18 with coughing and extreme weakness to where she could not even walk. She had a fever of 101.3. She was found to be positive for flu A in the Emergency Room. Due to her illness, she was admitted to the hospital. She had a concern for right lower lobe pneumonia as well. Throughout the admission, she was treated with Tamiflu, Rocephin and azithromycin. Step-alejandra, throughout the admission, she improved to the point where she can be discharged today. I will discharge her in stable condition to followup with Dr. Carolina. I am sending a prescription for doxycycline to [place]. Her diet will not change. Activity as tolerated. #[id number] [facility]
[2018-04-21 11:10] VITALS: BP 127/71; TEMP 98; O2SAT 100
== END 2018-04-21 10:50 | disposition home or self-care (01) | DRG 871 ==
LOC: ER 21:56 → MS 04-16 00:31 → OBSVTOIN 04-16 00:31
PROVIDERS: ADMIT Nurse Practitioner Acute Care; ATTEND Nurse Practitioner
DX: A41.9 Sepsis, unspecified organism (principal); J10.08 Influenza due to other identified influenza virus with other specified pneumonia; J18.1 Lobar pneumonia, unspecified organism; J44.0 Chronic obstructive pulmonary disease with (acute) lower respiratory infection; E87.1 Hypo-osmolality and hyponatremia; E11.42 Type 2 diabetes mellitus with diabetic polyneuropathy; D50.9 Iron deficiency anemia, unspecified; J44.9 Chronic obstructive pulmonary disease, unspecified; K21.9 Gastro-esophageal reflux disease without esophagitis; I10 Essential (primary) hypertension; M54.16 Radiculopathy, lumbar region; N28.9 Disorder of kidney and ureter, unspecified; E83.42 Hypomagnesemia; E87.8 Other disorders of electrolyte and fluid balance, not elsewhere classified; G89.29 Other chronic pain; E87.6 Hypokalemia; Z88.5 Allergy status to narcotic agent; Z77.22 Contact with and (suspected) exposure to environmental tobacco smoke (acute) (chronic)

== ENCOUNTER → 2018-07-03 | Outpatient (CLI) | payer MEDICARE ==
--- NOTE | 2018-07-05 16:53 | US ---
US THYROID CLINICAL STATEMENT: OTHER SPECIFIED NONTOXIC GOITER. No palpable mass. No prior thyroid surgery or therapy. COMPARISON: None TECHNIQUE: Transcutaneous scanning, grayscale and Doppler modes. FINDINGS: Size right thyroid lobe: 3.6 x 1.8 x 1.3 cm Size left thyroid lobe: 4.4 x 1.7 x 1.0 cm Size isthmus: 0.22 cm Estimated total number of nodules greater than or equal to 1 cm: 2 Nodule 1: Size: 1.4 x 1.4 x 1.1 cm Location: Left Lower Composition: solid or almost completely solid: 2 points Echogenicity: hyperechoic: 1 point Shape: wider than tall: 0 points Margins: smooth: 0 points Echogenic foci: none: 0 points ACR Total Points: 3; ACR TI-RADS risk category: TR3 - mildly suspicious nodule. Nodule 2: Size: 1.1 x 1.0 x 0.7 cm Location: Left Mid Composition: solid or almost completely solid: 2 points Echogenicity: hypoechoic: 2 points Shape: wider than tall: 0 points Margins: smooth: 0 points Echogenic foci: none: 0 points ACR Total Points: 4; ACR TI-RADS risk category: TR4 - moderately suspicious nodule. Nodule 3: Size: 0.7 x 0.6 x 0.4 cm Location: Right Lower Composition: solid or almost completely solid: 2 points Echogenicity: hypoechoic: 2 points Shape: wider than tall: 0 points Margins: smooth: 0 points Echogenic foci: none: 0 points ACR Total Points: 4; ACR TI-RADS risk category: TR4 - moderately suspicious nodule. Nodule 4: Size: 0.6 x 0.6 x 0.4 cm Location: Right Mid Composition: solid or almost completely solid: 2 points Echogenicity: hypoechoic: 2 points Shape: wider than tall: 0 points Margins: smooth: 0 points Echogenic foci: none: 0 points ACR Total Points: 4; ACR TI-RADS risk category: TR4 - moderately suspicious nodule. The soft tissue around the thyroid gland shows no evidence of dominant solid mass or distinct cyst. No parenchymal edema or large calcifications. No overlying skin changes. Normal vascularity. IMPRESSION: 1. Nodule 1: ACR TI-RADS 2017 Category TR3. Recommend: Follow-up ultrasound in 1 year.. Recommendations based upon [facility] Best Practice recommendations and ACR TI-RADS 2017 guidelines. Please see below*. 2. Nodule 2: ACR TI-RADS 2017 Category TR4. Recommend: Follow-up ultrasound in 1 year. 3. Nodule 3: ACR TI-RADS 2017 Category TR4. Recommend: No further follow-up. 4. Nodule 4: ACR TI-RADS 2017 Category TR4. Recommend: No further follow-up. Soft tissue around the thyroid gland is unremarkable. *ACR TI-RADS 2017 Recommendations: TR1: No FNA or follow up TR2: No FNA or follow up TR3: FNA if >/= 2.5 cm, follow up if 1.5 - 2.4 cm in 1, 3, and 5 years TR4: FNA if >/= 1.5 cm, follow up if 1.0 - 1.4 cm in 1, 2, 3, and 5 years TR5: FNA if >/= 1.0 cm, follow up if 0.5 - 0.9 cm every year for 5 years ACR TI-RADS recommends that no more than two nodules with the highest ACR TI-RADS total point should be biopsied and no more than four nodules should be followed. These recommendations do not apply to patients with increased risk for thyroid cancer or patients with symptomatic thyroid disease. Electronically signed by: Dequan Evans MD 07/05/2018 4:50 PM CDT
== END ==
LOC: US 09:53
PROVIDERS: ATTEND Family Medicine
DX: E04.8 Other specified nontoxic goiter (principal); M25.50 Pain in unspecified joint

== ENCOUNTER → 2018-07-09 | Outpatient (CLI) | payer MEDICARE ==
--- NOTE | 2018-07-09 20:45 | MRI ---
EXAM DESCRIPTION: Brain w/wo Contrast: Magnetic Resonance Imaging. CLINICAL HISTORY: 78 years Female Altered mental status, unspecified COMPARISON: None. TECHNIQUE: Multiplanar, high-field MRI, multiple conventional sequences, without and with gadolinium IV contrast. No adverse reactions. Multiple axial diffusion sequences. FINDINGS: Small foci of bilateral hyperintense FLAIR and T2-weighted signal in the periventricular cedeno radiata. Also in the cedeno radiata of the right parietal lobe.. Focal hyperintense signal in the centrum semiovale at the junction of the left frontal and parietal lobes. No abnormal contrast enhancement, no hemorrhage, and no diffusion restriction. Normal signal in the bilateral basal ganglia. No hemorrhage, no cerebral edema, no mass-effect. Normal contrast enhancement. Normal signal in the brainstem and cerebellar hemispheres. No hemorrhage, no cerebral edema, no mass-effect. Normal contrast enhancement. Concordance of the diffusion and non-diffusion sequences with no evidence of acute or subacute infarction. The lateral ventricles are slightly dilated lower the third ventricle. Cortical sulci and other CSF spaces, and the subdural spaces are normally configured for patients age. No effacement or displacement. No midline shift. No extra-axial hemorrhage. Normal contrast enhancement. Normal flow signal void in the major vessels of the [place], and the venous sinuses. IACs are symmetric bilaterally. Minimal fluid signal in the right mastoid air cells. Normal signal in the left mastoid air cells. No mass effect in the bilateral Cerebellopontine angles. Normal contrast enhancement. Pituitary gland occupies only the base of the sella. No mass effect. Normal contrast enhancement. Base of the cerebellar tonsils is at the level of the foramen magnum. Normal signal in the paranasal sinuses. The bony calvarium is intact. IMPRESSION: 1. White matter signal in the cedeno radiata, right parietal lobe, and centrum semiovale left frontal parietal junction most likely related to cerebral microvascular disease and aging. No hemorrhage, no abnormal contrast enhancement, no cerebral edema, and no diffusion restriction. 2. Lateral ventricles and third ventricle are slightly dilated for age, indicating minimal central atrophy or nonobstructive mild hydrocephalus. 3. Minimal chronic right mastoiditis. Small pituitary gland signal in the base of the sella. No mass effect in the sella. Electronically signed by: Dequan Evans MD 07/09/2018 8:42 PM CDT
== END ==
LOC: MRI 11:01
PROVIDERS: ATTEND Family Medicine
DX: R41.82 Altered mental status, unspecified (principal); H70.91 Unspecified mastoiditis, right ear; Z82.41 Family history of sudden cardiac death

== ENCOUNTER → 2018-10-08 | Outpatient (CLI) | payer MEDICARE | LOC: GMAL 10:27 | PROVIDERS: ATTEND Family Medicine | DX: M10.9 Gout, unspecified (principal) ==

== ENCOUNTER → 2019-04-02 | Outpatient (CLI) | payer MEDICARE ==
--- NOTE | 2019-04-02 18:41 | RAD ---
EXAM: PA and LATERAL CHEST RADIOGRAPHS CLINICAL INDICATION: Cough. COMPARISON: Compared to chest radiograph performed April 19, 2018. FINDINGS: Cardiac size and pulmonary vasculature are normal. New left basilar consolidation suspicious for pneumonia. No pleural effusions, pneumothorax or free peritoneal gas. No suspicious hilar or mediastinal lymphadenopathy. Bones are intact on these two views. IMPRESSION: New left basilar consolidation suspicious for pneumonia. Otherwise, normal for age chest radiographs. 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
== END ==
LOC: RAD 13:47
PROVIDERS: ATTEND Nurse Practitioner Family
DX: R05 Cough (principal); R91.8 Other nonspecific abnormal finding of lung field

== ENCOUNTER → 2019-04-15 | Outpatient (CLI) | payer MEDICARE | LOC: GMAL 14:16 | PROVIDERS: ATTEND Family Medicine | DX: D51.3 Other dietary vitamin B12 deficiency anemia (principal); E03.9 Hypothyroidism, unspecified; E55.9 Vitamin D deficiency, unspecified; I10 Essential (primary) hypertension; E11.9 Type 2 diabetes mellitus without complications; E78.49 Other hyperlipidemia; E78.2 Mixed hyperlipidemia; M10.9 Gout, unspecified ==

== ENCOUNTER → 2019-12-14 | Outpatient (CLI) | payer MEDICARE | LOC: GMAL 11:16 | PROVIDERS: ATTEND Family Medicine | DX: R53.82 Chronic fatigue, unspecified (principal); E11.9 Type 2 diabetes mellitus without complications; I10 Essential (primary) hypertension; E78.49 Other hyperlipidemia ==

== ENCOUNTER → 2020-04-04 | Outpatient (CLI) | payer MEDICARE | LOC: GMAL 11:08 | PROVIDERS: ATTEND Family Medicine | DX: D50.8 Other iron deficiency anemias (principal); E11.9 Type 2 diabetes mellitus without complications; Z79.899 Other long term (current) drug therapy; E78.49 Other hyperlipidemia ==

== ENCOUNTER 2020-04-27 05:31 | Day surgery (SDC) | payer MEDICARE ==
[2020-04-27] MEDS ORDERED: LACTATED RINGERS 1,000 ML ONE (06:37)
[2020-04-27] MEDS ORDERED: LIDOCAINE 1% 10 ML VIAL INJ ONE (07:00)
[2020-04-27] MEDS ORDERED: PROPOFOL 200 MG/20 ML VIAL IV ONE (07:00)
--- NOTE | 2020-04-27 10:36 | OP ---
DATE OF PROCEDURE: 04/27/20 PREOPERATIVE DIAGNOSIS: 1. Anemia. POSTOPERATIVE DIAGNOSIS: 1. Normal colonoscopy. PROCEDURE: 1. Colonoscopy. SURGEON: Mario Garcia MD ANESTHESIA: General. FINDINGS: There were no polyps and no significant inflammation of the mucosa to explain the anemia. Slightly reddened on the right side, but some of this was from our manipulation. COMPLICATIONS: None. ESTIMATED BLOOD LOSS: None. PLAN: Discharge. INDICATION: As stated. PROCEDURE: After adequate prep, the patient was brought to the Operating Suite in lateral position. General anesthesia was induced. Digital rectal exam was normal but for external anal tags. The colonoscope was inserted and passed with minimal difficulty to the cecum. Upon withdrawal, we saw a couple of hyperemic areas. These were felt to be from the scope, but no evidence of colitis. Upon withdrawal, throughout the entire colon, no polyps were noted or any evidence of bleeding. There was some diverticulosis with no evidence of recent bleed. The patient tolerated the procedure and was taken to Recovery to be discharged. #[id number] cc: Andre Carolina MD MTDD
[2020-04-27 11:19] VITALS: BP 106/90; TEMP 97.1; O2SAT 98
== END 2020-04-27 11:10 | disposition home or self-care (01) ==
LOC: AMB 05:31
PROVIDERS: ATTEND Surgery
DX: D64.9 Anemia, unspecified (principal); K57.30 Diverticulosis of large intestine without perforation or abscess without bleeding; E11.9 Type 2 diabetes mellitus without complications; I10 Essential (primary) hypertension; J44.9 Chronic obstructive pulmonary disease, unspecified; K59.00 Constipation, unspecified; F32.9 Major depressive disorder, single episode, unspecified; K21.9 Gastro-esophageal reflux disease without esophagitis; Z88.5 Allergy status to narcotic agent; Z90.710 Acquired absence of both cervix and uterus; Z79.899 Other long term (current) drug therapy
CPT/HCPCS: 00811; 36416; 45378; 82948; J3490; J7120